=== PATIENT | female | born 1995 | race Caucasian/White ===

== ENCOUNTER 2021-01-11 13:05 | Inpatient (IN) ==
[~2021-01-11 13:05] MED LIST: Famotidine 20 MG/2 ML VIAL IVP PRN; Lidocaine 1% 20 ML MDV INFILT PRN; Metoclopramide 10 MG/2 ML VIAL IVP PRN; Naloxone 0.4 MG/ML INJ IVP PRN; Ondansetron 4 MG/2 ML VIAL IVP PRN
[2021-01-11] MEDS ORDERED: Penicillin G Potassium 5,000,000 UNIT in 0.9 % Sodium Chloride Mini Bag 100 ML IVPB ONE (13:07)
[2021-01-11] MEDS ORDERED: Ringers Solution, Lactated 1,000 ML IVC SCH (13:15)
[2021-01-11] MEDS ORDERED: *HR* Labetalol 20 MG/4 ML SYRINGE IVP ONE ×3 (13:25→22:04)
[2021-01-11 13:49] LABS: Basophils % 0.3 %; Eosinophils # 0.1 K/mcL (0.0-0.6); Eosinophils % 1.6 %; Hematocrit 31.1 % (35.3-44.9); Hemoglobin 10.2 g/dL (11.5-15.4); Immature Granulocytes % 0.2 % (0-4); Lymphocytes # 1.8 K/mcL (0.6-4.6); Mean Corpuscular HGB Conc 32.8 g/dL (31.6-35.5); Mean Corpuscular Hemoglobin 27.9 pg (28.0-33.3); Mean Platelet Volume 12.3 fL (9.4-12.4); Monocytes # 0.4 K/mcL (0.0-1.3); Monocytes % 4.7 %; Neutrophils # 6.5 K/mcL (1.6-8.9); Platelet Count 173 K/mcL (140-400); Red Blood Count 3.66 M/mcL (3.82-4.97); Red Cell Distribution Width 13.4 % (11.5-14.5); Segmented Neutrophils % 73.2 %; White Blood Count 8.9 K/mcL (4.3-11.1)
[2021-01-11] MEDS: miSOPROStoL 25 MCG TABLET PO SCH ×2 (13:49→18:34)
[2021-01-11 13:53] LABS: Bacteria,Urine Few per hpf (None-Few); Bilirubin,Urine Negative (Negative); Blood,Urine Small (Negative); Clarity,Urine Clear (Clear); Color,Urine Colorless (Yellow); Glucose,Urine (UA) Normal (Normal); Ketones,Urine Negative (Negative); Leukocyte Esterase,Urine Trace (Negative); Nitrite,Urine Negative (Negative); PH,Urine 6.5 pH Units (5.0-8.0); Protein,Urine 50 mg/dL (Neg-Trace); RBC,Urine 0-3 per hpf (0-3); Specific Gravity,Urine 1.011 (1.010-1.025); Squamous Epithelial Cell,Urine Few per hpf (None-Few); Urobilinogen,Urine Normal (Normal)
[2021-01-11 13:58] LABS: Protein/Creatinine Ratio,Urine 1.44 mg/mg (0.00-0.20)
[2021-01-11 13:59] LABS: Amphetamine Screen,Urine Negative ng/mL (Cutoff=1000); Barbiturate Screen,Urine Negative ng/mL (Cutoff=200); Benzodiazepines Screen,Urine Negative ng/mL (Cutoff=200); Cannabinoid Screen,Urine Negative ng/mL (Cutoff = 50); Cocaine Screen,Urine Negative ng/mL (Cutoff= 300); Opiate Screen,Urine Negative ng/mL (Cutoff=300); Phencyclidine Screen,Urine Negative ng/mL (Cutoff=25)
[2021-01-11 14:11] LABS: Alanine Aminotransferase 15 Units/L (7-52); Aspartate Amino Transferase 18 Units/L (13-39); BUN/Creatinine Ratio 20 (6-26); Blood Urea Nitrogen 15 mg/dL (6-20); Lactate Dehydrogenase 160 Units/L (140-271); Uric Acid 5.1 mg/dL (2.3-7.6); eGFR For African Americans > 60 (> 60); eGFR For Non-African Americans > 60 (> 60)
[2021-01-11] MEDS: Penicillin G Potassium 2,500,000 UNIT/105 ML MLS IVPB SCH ×2 (18:04→22:38)
[2021-01-11] MEDS: *HR* Nalbuphine 10 MG/ML AMPUL IV PRN ×2 (19:08→21:02)
[2021-01-11] MEDS ORDERED: EPHEDrine 50 MG/ML VIAL IVP PRN (21:41)
[2021-01-11] MEDS ORDERED: *HR* FentaNYL (PF) 100 MCG/2 ML VIAL EP ONE (21:41)
[2021-01-11] MEDS ORDERED: Ropivacaine/PF 0.2% 20 ML VIAL EP ONE (21:41)
[2021-01-11] MEDS ORDERED: *HR* FentaNYL (PF) 100 MCG/2 ML VIAL ONE (21:44)
[2021-01-11] MEDS ORDERED: Ropivacaine/PF 0.2% 20 ML VIAL ONE (21:44)
[2021-01-11] MEDS ORDERED: Epidural Premix (fent/bupiv) 110 ML EP SCH (21:45)
[2021-01-11] MEDS ORDERED: Oxytocin 20 units/ LR 1000 mL 20 UNIT/1,000 ML BAG IVC SCH (23:00)
[2021-01-12] MEDS ORDERED: Lanolin 7 G OINT...G. TP PRN (04:10)
[2021-01-12] MEDS ORDERED: Oxytocin 20 units/ LR 1000 mL 20 UNIT/1,000 ML BAG IVC SCH (04:10)
[2021-01-12] MEDS ORDERED: Benzocaine/Menthol 56 GM AEROSOL SPRAY TP PRN (04:10)
[2021-01-12] MEDS: Ibuprofen 600 MG TABLET PO PRN ×3 (07:56→23:56)
[2021-01-12] MEDS: Prenatal Vit/FA 1 EACH TABLET PO SCH (07:57)
[2021-01-12 20:10] VITALS: O2SAT 98
[2021-01-12] MEDS: Acetaminophen 325 MG TABLET PO PRN (21:23)
[2021-01-13] MEDS: Ibuprofen 600 MG TABLET PO PRN ×2 (07:49→14:37)
[2021-01-13] MEDS: Prenatal Vit/FA 1 EACH TABLET PO SCH (07:49)
[2021-01-13 07:58] VITALS: BP 129/84; PULSE 62; TEMP 98.6
[2021-01-13 10:35] LABS: Basophils % 0.4 %; Eosinophils # 0.3 K/mcL (0.0-0.6); Eosinophils % 2.7 %; Hematocrit 29.1 % (35.3-44.9); Hemoglobin 9.6 g/dL (11.5-15.4); Immature Granulocytes % 0.3 % (0-4); Lymphocytes # 2.5 K/mcL (0.6-4.6); Lymphocytes % 26.3 %; Mean Corpuscular Hemoglobin 28.5 pg (28.0-33.3); Mean Corpuscular Volume 86.4 fL (83.0-100.0); Mean Platelet Volume 12.5 fL (9.4-12.4); Monocytes # 0.4 K/mcL (0.0-1.3); Monocytes % 4.7 %; Neutrophils # 6.1 K/mcL (1.6-8.9); Platelet Count 169 K/mcL (140-400); Red Blood Count 3.37 M/mcL (3.82-4.97); Red Cell Distribution Width 14.3 % (11.5-14.5); Segmented Neutrophils % 65.6 %; White Blood Count 9.4 K/mcL (4.3-11.1)
[2021-01-13] MEDS: Acetaminophen 325 MG TABLET PO PRN (14:41)
== END 2021-01-13 18:33 | disposition home or self-care (01) | DRG 807 ==
LOC: 1NENULAB → 1NENUOBS 01-12 04:58
PROVIDERS: ADMIT Advanced Practice Midwife; ATTEND Advanced Practice Midwife